=== PATIENT | male | born 1975 | race Caucasian/White ===

== ENCOUNTER 2019-10-15 22:57 | Emergency (ER) | payer OTHER ==
[~2019-10-15] VITALS: Ht 198.1 cm; Wt 125.0 kg
--- NOTE | 2019-10-15 23:00 | PHYS DOC ---
Past History Past Medical History: Anxiety, Depression, GERD Past Surgical History: No Surgical History Alcohol Use: Occasionally Drug Use: None General Adult HPI: HPI: ".. I ve been having some anxiety..and depressed thoughts.. I did think about and says in a text ..the world would be a better place without me maybe...I never developed at suicide plan...or anything..I am really depressed about not seeing my father before he ..and I only learned about his ..when I was [employer] the address of his [facility]....".. " I do have anxiety some times.. 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 and did drink about 6 beers last night to get to sleep.. 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 Currently having some grief and regrets over missing his father's and even being aware of his on September 05. Patient only learned about his father's in September when he was Googling the shelter address. Patient denies any active or specific plan for suicide. 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 Patient has not had a previous episodes or hospitalization for depression, anxiety or psychiatric issues. Denies any history of excessive frequent alcohol use. Patient denies any polysubstance abuse. Patient does have a family history of Parkinson's with his father which required shelter placement and mother has a history of anxiety and depression. Patient denies any history of PTSD or traumatic brain injury during 2 tours in [place]. Patient has approximately 20 years service. Patient denies any recent travel. Up-to-date with vaccinations. Normally healthy. Review of Systems: Review of Systems: Constitutional: Denies fever or chills Eyes: Denies change in visual acuity HENT: Denies nasal congestion or sore throat Respiratory: Denies cough or shortness of breath Cardiovascular: Denies chest pain or edema GI: Denies abdominal pain, nausea, vomiting, bloody stools or diarrhea : Denies dysuria Musculoskeletal: Denies back pain or joint pain Integument: Denies rash Neurologic: Denies headache, focal weakness or sensory changes Endocrine: Denies polyuria or polydipsia Lymphatic: Denies swollen glands Psychiatric: Hx of thoughts of depression and complaints of anxiety Heart Score: HEART Score for Chest Pain: HEART Score for Chest Pain Response (Comments) Value History Slighlty/Non-Suspicious 0 ECG Normal 0 Age < 45 0 Risk Factors No Risk Factors 0 Troponin < Normal Limit 0 Total 0 Risk Factors: Risk Factors: DM, Current or recent (<one month) smoker, HTN, HLP, family history of CAD, obesity. Risk Scores: Score 0 - 3: 2.5% MACE over next 6 weeks - Discharge Home Score 4 - 6: 20.3% MACE over next 6 weeks - Admit for Clinical Observation Score 7 - 10: 72.7% MACE over next 6 weeks - Early Invasive Strategies Family History: Family History: Father with Parkinson's, mother with depression and anxiety Current Medications: Current Meds: See nursing for home meds Allergies: Allergies: Allergies Coded Allergies Type Severity Reaction Last Updated Verified No Known Drug Allergies 10/01/15 No Physical Exam: PE: Constitutional: Well developed, well nourished, no acute distress, non-toxic appearance. [] Appears to be in very good physical condition HENT: Normocephalic, atraumatic, bilateral external ears normal, oropharynx moist, no oral exudates, nose normal. [] Eyes: PERRLA, EOMI, conjunctiva normal, no discharge. [] Neck: Normal range of motion, no tenderness, supple, no stridor. [] Cardiovascular: Bradycardia heart rate regular rhythm, no murmur [] Lungs & Thorax: Bilateral breath sounds equal apex on auscultation [] Abdomen: Bowel sounds normal, soft, no tenderness, no masses, no pulsatile masses. [] Skin: Warm, dry, no erythema, no rash. [] Back: No tenderness, no CVA tenderness. [] Extremities: No tenderness, no cyanosis, no clubbing, ROM intact, no edema. [] Neurologic: Alert and oriented X 3, normal motor function, normal sensory function, no focal deficits noted. [] Psychologic: Affect reports anxiety and depression,, judgement normal, patient denies any current suicidal ideation but did think about suicide yesterday. Patient denies any suicide plan. EKG: EKG: My interpretation EKG shows a sinus bradycardia at 56 bpm. No acute pathology noted [] Radiology/Procedures: Radiology/Procedures: [] IMAGING REPORT Signed PATIENT: ERIC CONNER ACCOUNT: [id number] : 1975 LOCATION: ER AGE: 44 SEX: M EXAM STATUS: PRE ER ORD. PHYSICIAN: GARCIA DINH MD REASON: dyspnea PROCEDURE: CHEST PA & LATERAL PA and lateral chest. HISTORY: Dyspnea PA and lateral views were taken of the chest. Lungs are free of infiltrates. Heart is normal in size. There is no pleural effusion. IMPRESSION: 1. No acute chest disease. Electronically signed by: Jose Luis Manzano MD (10/15/2019 11:24 PM) [id number] DICTATED AND SIGNED BY: JOSE LUIS MANZANO MD DATE: 10/15/19 2324 CC: GARCIA DINH MD; PCP,UNKNOWN ~ Course & Med Decision Making: Course & Med Decision Making Pertinent Labs and Imaging studies reviewed. (See chart for details) See tele-psych report- [facility] [place]. Patient to keep follow-up with counseling centers. Patient to return if any concerns. Patient encouraged use avoid alcohol when depressed. Patient encouraged to return anytime if any exacerbation of his depressive thoughts. Impression: 1. Complaints of Depression and anxieity 2. Grief Reaction [] Dragon Disclaimer: Dragon Disclaimer: This electronic medical record was generated, in whole or in part, using a voice recognition dictation system. Departure Departure: Disposition: 01 HOME/RESIDENCE PRIOR TO ADM Condition: STABLE Referrals: PCP,UNKNOWN (PCP) Justification of Admission: Justification of Admission: Justification of Admission Dx: N/A Dragon Disclaimer This chart was dictated in whole or in part using Voice Recognition software in a busy, high-work load, and often noisy Emergency Department environment. It may contain unintended and wholly unrecognized errors or omissions. Dragon Disclaimer This chart was dictated in whole or in part using Voice Recognition software in a busy, high-work load, and often noisy Emergency Department environment. It may contain unintended and wholly unrecognized errors or omissions. Dragon Disclaimer This chart was dictated in whole or in part using Voice Recognition software in a busy, high-work load, and often noisy Emergency Department environment. It may contain unintended and wholly unrecognized errors or omissions. Dragon Disclaimer This chart was dictated in whole or in part using Voice Recognition software in a busy, high-work load, and often noisy Emergency Department environment. It may contain unintended and wholly unrecognized errors or omissions. GARCIA DINH MD Oct 15, 2019 23:00
--- NOTE | 2019-10-15 23:27 | RAD ---
PA and lateral chest. HISTORY: Dyspnea PA and lateral views were taken of the chest. Lungs are free of infiltrates. Heart is normal in size. There is no pleural effusion. IMPRESSION: 1. No acute chest disease. Electronically signed by: Jose Luis Manzano MD (10/15/2019 11:24 PM) [id number]
[2019-10-15] MEDS ORDERED: IV RINGERS SOLUTION,LACTATED 1,000 ML IV SCH (23:30)
[2019-10-15 23:36] LABS: BARBITURATES NEG (NEG); BENZODIAZEPINES NEG (NEG); CANNABINOIDS NEG (NEG); COCAINE NEG (NEG); METHADONE NEG (NEG); OPIATES NEG (NEG); PHENCYCLIDINE NEG (NEG)
[2019-10-15 23:37] LABS: BACTERIA,URINE 0 /HPF (0-FEW); BILIRUBIN,URINE NEG (NEG); CLARITY,URINE CLEAR; COLOR,URINE YELLOW; GLUCOSE,URINE NEG (NEG); NITRITE,URINE NEG (NEG); RBC,URINE 0 /HPF (0-2); SQUAMOUS EPITHELIAL CELL,UR OCC /LPF; WBC,URINE OCC /HPF (0-4)
[2019-10-15 23:43] LABS: AMPHETAMINE/METHAMPHETAMINE NEG (NEG)
[2019-10-15 23:51] LABS: BASO # 0.1 x10^3/uL (0.0-0.2); BASO % 1 % (0-3); EOS # 0.2 x10^3/uL (0.0-0.7); EOS % 3 % (0-3); HEMATOCRIT 40.3 % (39.0-53.0); HEMOGLOBIN 13.7 g/dL (13.0-17.5); LYMPH % 44 % (24-48); MEAN CORPUSCULAR HEMOGLOBIN 28 pg (25-35); MEAN CORPUSCULAR HGB CONC 34 g/dL (31-37); MEAN CORPUSCULAR VOLUME 81 fL (79-100); MONO # 0.6 x10^3/uL (0.0-1.1); MONO % 8 % (0-9); NEUT % 45 % (31-73); PLATELET COUNT 182 x10^3/uL (140-400); RED BLOOD COUNT 4.95 x10^6/uL (4.30-5.70); RED CELL DISTRIBUTION WIDTH 13.6 % (11.5-14.5); WHITE BLOOD COUNT 6.8 x10^3/uL (4.0-11.0)
[2019-10-16 00:04] LABS: CALCIUM 8.8 mg/dL (8.5-10.1); GFR 81.6; POTASSIUM 3.5 mmol/L (3.5-5.1)
[2019-10-16 00:07] LABS: ETHANOL < 10 mg/dL (0-10); SALIC < 2.8 mg/dL (2.8-20.0)
[2019-10-16 00:08] LABS: ACETAMIN < 2.0 mcg/mL (10-30)
[2019-10-16 00:10] LABS: ALBUMIN 3.8 g/dL (3.4-5.0); DIRECT BILIRUBIN 0.1 mg/dL (0.0-0.2); MAGNESIUM 1.8 mg/dL (1.8-2.4); TOTAL BILIRUBIN 0.6 mg/dL (0.2-1.0); TOTAL PROTEIN 7.1 g/dL (6.4-8.2)
[2019-10-16 00:38] VITALS: BP 120/84
--- NOTE | 2019-10-16 05:01 | EKG ---
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
== END 2019-10-16 02:27 | disposition home or self-care (01) ==
LOC: ER 22:57
DX: F32.9 Major depressive disorder, single episode, unspecified (principal); F41.9 Anxiety disorder, unspecified; F43.20 Adjustment disorder, unspecified; K21.9 Gastro-esophageal reflux disease without esophagitis
CPT/HCPCS: 36415; 71046; 80048; 80076; 80307; 80329; 81001; 82550; 83690; 83735; 84443; 84484; 85025; 85610; 85730; 93005; 99285; G0480; J7120

== ENCOUNTER 2019-11-01 11:00 | Emergency (ER) | payer OTHER ==
[~2019-11-01] VITALS: Ht 198.1 cm; Wt 115.7 kg
[2019-11-01 11:05] VITALS: BP 112/76
[2019-11-01] MEDS ORDERED: BUTALB/APAP/CAFEIN 50/325/40MG TABLET. PO ONE (11:15)
[2019-11-01] MEDS ORDERED: DEXAMETHASONE 4 MG TABLET PO ONE (11:15)
[2019-11-01] MEDS ORDERED: KETOROLAC 30 MG/ML VIAL. IM ONE (11:15)
[2019-11-01] MEDS ORDERED: BUTA1TAB23 PO (11:26)
--- NOTE | 2019-11-01 11:27 | PHYS DOC ---
Past History Past Medical History: Anxiety, Depression, GERD Past Surgical History: No Surgical History Smoking: Non-smoker Alcohol Use: Occasionally Drug Use: None General Adult EDM: Chief Complaint: HEADACHE HPI: HPI: 44-year-old male presents with 3-day history of headache with pain behind his eyes. Denies photophobia. Denies nausea. Denies fever or chills. Denies known trauma. Denies neck pain. Review of Systems: Review of Systems: Constitutional: Denies fever or chills Eyes: Denies redness; reports pain behind his eyes HENT: Denies nasal congestion or sore throat Respiratory: Denies cough or shortness of breath Cardiovascular: Denies chest pain or palpitations GI: Denies abdominal pain, nausea, or vomiting : Denies dysuria or hematuria Musculoskeletal: Denies neck pain or joint pain Integument: Denies rash or skin lesions Neurologic: Reports headache,; denies focal weakness or sensory changes Complete systems were reviewed and found to be within normal limits, except as documented in this note. Current Medications: Current Meds: Current Medications Medications (Trade) Dose Ordered Sig/Linda Start Time Stop Time Status Last Admin Dose Admin Acetaminophen/ Butalbital/ Caffeine (Fioricet) 1 tab 1X ONCE 11/01/19 11:15 11/01/19 11:16 DC Dexamethasone (Decadron) 10 mg 1X ONCE 11/01/19 11:15 11/01/19 11:16 DC Ketorolac Tromethamine (Toradol 30mg Vial) 30 mg 1X ONCE 11/01/19 11:15 11/01/19 11:16 DC Allergies: Allergies: Allergies Coded Allergies Type Severity Reaction Last Updated Verified No Known Drug Allergies 10/01/15 No Physical Exam: PE: Constitutional: Well developed, well nourished, no acute distress, non-toxic appearance HENT: Normocephalic, atraumatic Eyes: PERRL, EOMI, conjunctiva normal, no discharge, no nystagmus Neck: Normal range of motion, no midline tenderness, supple, no meningeal signs Lungs & Thorax: No respiratory distress, equal chest rise and fall Abdomen: Soft, no tenderness Skin: Warm, dry, no erythema, no rash Extremities: No tenderness, ROM intact, no edema Neurologic: Alert and oriented X 3, normal motor function, normal sensory function, no focal deficits noted Psychologic: Affect normal, judgment normal EKG: EKG: [] Radiology/Procedures: Radiology/Procedures: [] Course & Med Decision Making: Course & Med Decision Making Patient presents with headache x3 days. Patient is neurologically intact. Afebrile. No meningeal signs appreciated. Symptomatic treatment provided. Patient stable for discharge with outpatient follow-up with PCP. Discussed findings and plan with patient, who acknowledges understanding and agreement. Dorene Disclaimer: Dorene Disclaimer: This electronic medical record was generated, in whole or in part, using a voice recognition dictation system. Departure Departure: Impression: Primary Impression: Headache Qualified Codes: R51 - Headache Disposition: HOME/RESIDENCE PRIOR TO ADM Condition: STABLE Referrals: VIOLA RALPH (PCP) Patient Instructions: Headache, FAQs Additional Instructions: May also take over the counter Ibuprofen 600mg (three over the counter tabs) three times daily as needed for pain/headache. Scripts Butalb/Acetaminophen/Caffeine ([id number] 50-325-40) 1 Each Tablet 1 EACH PO Q6HRS PRN for HEADACHE, #14 TAB Prov: MATHEUS MCDERMOTT DO 11/01/19 Justification of Admission: Justification of Admission: Justification of Admission Dx: N/A MATHEUS MCDERMOTT DO Nov 01, 2019 11:27
== END 2019-11-01 12:01 | disposition home or self-care (01) ==
LOC: ER 11:00
DX: R51 Headache (principal); H57.89 Other specified disorders of eye and adnexa; F41.9 Anxiety disorder, unspecified; F32.9 Major depressive disorder, single episode, unspecified; K21.9 Gastro-esophageal reflux disease without esophagitis
CPT/HCPCS: 99283; J8540

== ENCOUNTER 2020-04-26 13:42 | Emergency (ER) | payer OTHER ==
[~2020-04-26] VITALS: Ht 182.9 cm; Wt 115.7 kg
[~2020-04-26 13:42] MED LIST: BUTA1TAB23 PO
[2020-04-26] MEDS ORDERED: IV NORMAL SALINE 1,000ML 1,000 ML IV SCH (14:00)
--- NOTE | 2020-04-26 14:04 | PHYS DOC ---
Past History Past Medical History: Anxiety, Depression, Other Additional Past Medical Histor: Panic attacks (ANGEL WHITEHEAD APRN) Past Surgical History: No Surgical History (ANGEL WHITEHEAD APRN) Smoking: Non-smoker Alcohol Use: None Drug Use: None (ANGEL WHITEHEAD APRN) General Adult EDM: Chief Complaint: ANXIETY/PANIC ATTACK HPI: HPI: Patient is a 44-year-old male who presents with dizziness that started today around 1:00 while he was sitting in his basement watching TV. EMS was called but patient refused. Patient states he tried to drive here but' started having a panic attack on the way and had to call EMS to bring him in. Patient also reports he was feeling short of breath, chest pressure that radiated into his neck, and tingling in bilateral hands. Patient also reports pressure behind bilateral eyes and rates it a 2 out of 10. Nuys taking anything for pain or anxiety at home. Patient states that he has had some congestion since Friday and has been taking Mucinex D and NyQuil. Patient denies nausea, vomiting, diarrhea. Denies any issues with eating or drinking. Patient's has history of anxiety and depression. (ANGEL WHITEHEAD APRN) Review of Systems: Review of Systems: Constitutional: Denies fever or chills Eyes: Denies change in visual acuity HENT: Reports nasal congestion and pain behind bilateral eyes Respiratory: Denies cough or shortness of breath Cardiovascular: Reports chest pain denies edema GI: Denies abdominal pain, nausea, vomiting, bloody stools or diarrhea : Denies dysuria Musculoskeletal: Denies back pain or joint pain Integument: Denies rash Neurologic: Ports headache, denies focal weakness or sensory changes Endocrine: Denies polyuria or polydipsia Lymphatic: Denies swollen glands Psychiatric: Reports history of depression and anxiety (ANGEL WHITEHEAD APRN) Allergies: Allergies: Allergies Coded Allergies Type Severity Reaction Last Updated Verified No Known Drug Allergies 10/01/15 No (ANGEL WHITEHEAD APRN) Physical Exam: PE: Constitutional: Well developed, well nourished, no acute distress, non-toxic appearance. [] HENT: Normocephalic, atraumatic, bilateral external ears normal, oropharynx moist, no oral exudates, nose normal. [] Eyes: PERRLA, EOMI, conjunctiva normal, no discharge. [] Neck: Normal range of motion, no tenderness, supple, no stridor. [] Cardiovascular:Heart rate regular rhythm, no murmur [] Lungs & Thorax: Bilateral breath sounds clear to auscultation [] Abdomen: Bowel sounds normal, soft, no tenderness, no masses, no pulsatile masses. [] Skin: Warm, dry, no erythema, no rash. [] Back: No tenderness, no CVA tenderness. [] Extremities: No tenderness, no cyanosis, no clubbing, ROM intact, no edema. [] Neurologic: Alert and oriented X 3, normal motor function, normal sensory function, no focal deficits noted. [] Psychologic: Affect normal, judgement normal, mood normal. [] (ANGEL WHITEHEAD APRN) Current Patient Data: Vital Signs: Vital Signs Date Time Temp Pulse Resp B/P (MAP) Pulse Ox O2 Delivery O2 Flow Rate FiO2 04/26/20 13:45 97.8 74 16 120/81 (94) 98 Room Air (ANGEL WHITEHEAD APRN) EKG: EKG: Sinus rhythm, no specific ECG abnormalities. Heart rate 66 bpm. Intervals normal, axis normal. No STEMI. Read by Dr. Seaman at 1423 [] (ANGEL WHITEHEAD APRN) Radiology/Procedures: Radiology/Procedures: []XR CHEST 1V INDICATION: Reason: chest pressure, sob / Spl. Instructions: / History: . COMPARISON STUDY: None. FINDINGS: Lungs: Normal lung volume. No pulmonary mass or consolidation. The tracheobronchial tree and hilar structures are normal. Pleura: No pleural effusion or pneumothorax. Heart and Mediastinum: The cardiomediastinal silhouette is normal. The great vessels of the thorax are normal. Bones and Soft Tissues: The bones and soft tissues are within normal limits. IMPRESSION: No acute cardiopulmonary process. Electronically signed by: Johnathan Gordon MD (04/26/2020 3:14 PM) [id number] (ANGEL WHITEHEAD APRN) Heart Score: HEART Score for Chest Pain: HEART Score for Chest Pain Response (Comments) Value History Slighlty/Non-Suspicious 0 ECG Normal 0 Age < 45 0 Risk Factors No Risk Factors 0 Troponin < Normal Limit 0 Total 0 Risk Factors: Risk Factors: DM, Current or recent (<one month) smoker, HTN, HLP, family history of CAD, obesity. Risk Scores: Score 0 - 3: 2.5% MACE over next 6 weeks - Discharge Home Score 4 - 6: 20.3% MACE over next 6 weeks - Admit for Clinical Observation Score 7 - 10: 72.7% MACE over next 6 weeks - Early Invasive Strategies (ANGEL WHITEHEAD APRN) Course & Med Decision Making: Course & Med Decision Making Pertinent Labs and Imaging studies reviewed. (See chart for details) [] 44-year-old man who presents with dizziness today that started at 1 PM while he was sitting in his basement watching TV. Patient also reports chest pressure that radiates up into his neck, and shortness of breath. She reports pressure behind his eyes. Patient denies nausea, vomiting. Patient given aspirin and fluids. EKG normal sinus rhythm. All labs within normal limits. Troponin negative. D- dimer and chest x-ray negative. Heart score of 0. Patient reports his symptoms have resolved other than the pressure behind his eyes. Will order Toradol for pain. Patient is hemodynamically stable on discharge and able to ambulate on his own. (ANGEL WHITEHEAD APRN) Course & Med Decision Making Patient had a panic attack. Patient is well-appearing without any distress. Denies suicidal or homicidal ideation. (LATA SEAMAN MD) Dragon Disclaimer: Dorene Disclaimer: This electronic medical record was generated, in whole or in part, using a voice recognition dictation system. (ANGEL WHITEHEAD APRN) Departure Departure: Impression: Primary Impression: Anxiety Additional Impression: Chest pressure Disposition: 01 DC HOME SELF CARE/HOMELESS Condition: IMPROVED Referrals: VIOLA RALPH (PCP) Patient Instructions: Anxiety and Panic Attacks, [id number] Additional Instructions: You were seen in the emergency room today for dizziness, chest pressure and a nxiety.All of your labs were within normal limits and you EKG showed no abnormalities. Please follow up with your primary care physician for further management and possible referral. If your symptoms worsen or you have further concerns, return to the emergency room for evaluation. EMERGENCY DEPARTMENT GENERAL DISCHARGE INSTRUCTIONS Thank you for coming to [facility] (ED) today and trusting us with you care. We trust that you had a positivie experience in our Emergency Department. If you wish to speak to the department management, you may call the director at [phone]. YOUR FOLLOW UP INSTRUCTIONS ARE FOLLOWS: 1. Do you have a private Doctor? If you do not have a private doctor, please ask for a resource list of physicians or clinics that may be able to assist you with follow up care. 2. The Emergency Physician has interpreted your x-rays. The X-Ray specialist will also review them. If there is a change in the findings, you will be notified in 48 hours when at all possible. 3. A lab test or culture has been done, your results will be reviewed and you will be notified if you need a change in treatment. ADDITIONAL INSTRUCTIONS AND INFORMATION: 1. Your care today has been supervised by a physician who is specially trained in emergency care. Many problems require more than one evaluation for a complete diagnosis and treatment. We recommend that you schedule your follow up appointment as recommended to ensure complete treatment of you illness or injury. If you are unable to obtain follow up care and continue to have a problem, or if your condition worsens, we recommend that you return to the ED. 2. We are not able to safely determine your condition over the phone nor are we able to give sound medical advice over the phone. For these safety reasons, if you call for medical advice we will ask you to come to the ED for further evaluation. 3. If you have any questions regarding these discharge instructions please call the ED at [phone]. SAFETY INFORMATION: In the interest of safety, wellness, and injury prevention; we encourage you to wear your sealbelt, if you smoke; quite smoking, and we encourage family to use a protective helmet for bicycling and other sporting events that present an increased risk for head injury. IF YOUR SYMPTOMS WORSEN OR NEW SYMPTOMS DEVELOP, OR YOU HAVE CONCERNS ABOUT YOUR CONDITION; OR IF YOUR CONDITION WORSENS WHILE YOU ARE WAITING FOR YOUR FOLLOW UP APPOINTMENT; EITHER CONTACT YOUR PRIMARY CARE DOCTOR, THE PHYSICIAN WHOSE NAME AND NUMBER YOU WERE GIVEN, OR RETURN TO THE ED IMMEDIATELY. ANGEL WHITEHEAD APRN Apr 26, 2020 14:04 LATA SEAMAN MD Apr 27, 2020 08:06
[2020-04-26] MEDS ORDERED: ASPIRIN CHEWABLE 81 MG TABLET. PO ONE (14:15)
[2020-04-26 14:23] LABS: BASO % 1 % (0-3); EOS # 0.1 x10^3/uL (0.0-0.7); EOS % 2 % (0-3); HEMATOCRIT 41.7 % (39.0-53.0); HEMOGLOBIN 14.2 g/dL (13.0-17.5); LYMPH # 1.2 x10^3/uL (1.0-4.8); LYMPH % 35 % (24-48); MEAN CORPUSCULAR HEMOGLOBIN 27 pg (25-35); MEAN CORPUSCULAR HGB CONC 34 g/dL (31-37); MEAN CORPUSCULAR VOLUME 81 fL (79-100); MONO # 0.4 x10^3/uL (0.0-1.1); MONO % 12 % (0-9); NEUT # 1.7 x10^3uL (1.8-7.7); NEUT % 51 % (31-73); PLATELET COUNT 121 x10^3/uL (140-400); RED BLOOD COUNT 5.19 x10^6/uL (4.30-5.70); RED CELL DISTRIBUTION WIDTH 13.3 % (11.5-14.5); WHITE BLOOD COUNT 3.4 x10^3/uL (4.0-11.0)
--- NOTE | 2020-04-26 14:23 | EKG ---
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
[2020-04-26 14:33] LABS: CALCIUM 8.9 mg/dL (8.5-10.1); CREATININE 0.9 mg/dL (0.7-1.3); GFR 92.1; POTASSIUM 3.9 mmol/L (3.5-5.1)
[2020-04-26 14:45] LABS: ALBUMIN 3.9 g/dL (3.4-5.0); ALBUMIN/GLOBULIN RATIO 1.3 (1.0-1.7); TOTAL BILIRUBIN 0.5 mg/dL (0.2-1.0); TOTAL PROTEIN 6.9 g/dL (6.4-8.2)
[2020-04-26] MEDS ORDERED: KETOROLAC 15 MG/ML VIAL. IVP ONE (15:15)
--- NOTE | 2020-04-26 15:17 | RAD ---
XR CHEST 1V INDICATION: Reason: chest pressure, sob / Spl. Instructions: / History: . COMPARISON STUDY: None. FINDINGS: Lungs: Normal lung volume. No pulmonary mass or consolidation. The tracheobronchial tree and hilar st ructures are normal. Pleura: No pleural effusion or pneumothorax. Heart and Mediastinum: The cardiomediastinal silhouette is normal. The great vessels of the thorax ar e normal. Bones and Soft Tissues: The bones and soft tissues are within normal limits. IMPRESSION: No acute cardiopulmonary process. Electronically signed by: Johnathan Gordon MD (04/26/2020 3:14 PM) [id number]
[2020-04-26 15:37] LABS: BARBITURATES NEG (NEG); BENZODIAZEPINES NEG (NEG); CANNABINOIDS NEG (NEG); COCAINE NEG (NEG); METHADONE NEG (NEG); OPIATES NEG (NEG); PHENCYCLIDINE NEG (NEG)
[2020-04-26 15:43] VITALS: BP 135/54
[2020-04-26 15:50] LABS: BILIRUBIN,URINE NEG (NEG); CLARITY,URINE CLEAR; COLOR,URINE YELLOW; GLUCOSE,URINE NEG (NEG)
[2020-04-26 15:51] LABS: BACTERIA,URINE FEW /HPF (0-FEW); NITRITE,URINE NEG (NEG); RBC,URINE OCC /HPF (0-2); SQUAMOUS EPITHELIAL CELL,UR OCC /LPF; UROBILINOGEN,URINE 0.2 mg/dL (0.2 mg/dL); WBC,URINE OCC /HPF (0-4)
[2020-04-26 15:53] LABS: AMPHETAMINE/METHAMPHETAMINE NEG (NEG)
== END 2020-04-26 15:47 | disposition home or self-care (01) ==
LOC: ER 13:42
DX: F41.9 Anxiety disorder, unspecified (principal); R07.89 Other chest pain; F32.9 Major depressive disorder, single episode, unspecified
CPT/HCPCS: 36415; 71045; 80053; 80307; 81001; 83880; 84484; 85025; 85379; 93005; 96361; 96374; 99285; J1885; J7030

== ENCOUNTER 2020-12-12 08:08 | Emergency (ER) | payer OTHER ==
[~2020-12-12] VITALS: Ht 198.1 cm; Wt 118.6 kg
[2020-12-12] MEDS ORDERED: TRIA15OI TP (08:41)
[2020-12-12] MEDS ORDERED: PRED-220 PO (08:41)
--- NOTE | 2020-12-12 08:42 | PHYS DOC ---
Past History Past Medical History: Anxiety, Depression, Other Additional Past Medical Histor: Panic attacks Past Surgical History: No Surgical History Smoking: Non-smoker Alcohol Use: None Drug Use: None General Adult EDM: Chief Complaint: Insect bites HPI: HPI: 45-year-old male presents with many insect bites in the bilateral feet and ankles. He has a couple scattered areas on his upper extremities. These showed up several days ago. He has not spent a lot of time outside. He did mow his yard about a week ago. The rash is intensely pruritic. The patient also presents for a superficial laceration of the left leg. He was using a knife when it slipped and he made a cut in the left thigh. Bleeding is controlled prior to arrival. No skin gaping. The patient's tetanus shot is within the last 3 years. Review of Systems: Review of Systems: Constitutional: Denies fever or chills Eyes: Denies change in visual acuity HENT: Denies nasal congestion or sore throat Respiratory: Denies cough or shortness of breath Cardiovascular: Denies chest pain or edema GI: Denies abdominal pain, nausea, vomiting, bloody stools or diarrhea : Denies dysuria Musculoskeletal: Denies back pain or joint pain Integument: Rash, laceration Neurologic: Denies headache, focal weakness or sensory changes Endocrine: Denies polyuria or polydipsia Lymphatic: Denies swollen glands Psychiatric: Denies depression or anxiety Allergies: Allergies: Allergies Coded Allergies Type Severity Reaction Last Updated Verified No Known Drug Allergies 10/01/15 No Physical Exam: PE: Constitutional: Well developed, well nourished, no acute distress, non-toxic appearance. [] HENT: Normocephalic, atraumatic, bilateral external ears normal, oropharynx moist, no oral exudates, nose normal. [] Eyes: PERRLA, EOMI, conjunctiva normal, no discharge. [] Neck: Normal range of motion, no tenderness, supple, no stridor. [] Cardiovascular:Heart rate regular rhythm, no murmur [] Lungs & Thorax: Bilateral breath sounds clear to auscultation [] Abdomen: Bowel sounds normal, soft, no tenderness, no masses, no pulsatile masses. [] Skin: Many erythematous papules of the bilateral lower extremities with evidence of excoriation. Few scattered areas on the bilateral upper extremities. Superficial 4 cm laceration left thigh [] Back: No tenderness, no CVA tenderness. [] Extremities: No tenderness, no cyanosis, no clubbing, ROM intact, no edema. [] Neurologic: Alert and oriented X 3, normal motor function, normal sensory function, no focal deficits noted. [] Psychologic: Affect normal, judgement normal, mood normal. [] EKG: EKG: [] Radiology/Procedures: Radiology/Procedures: [] Heart Score: C/O Chest Pain: N/A Risk Factors: Risk Factors: DM, Current or recent (<one month) smoker, HTN, HLP, family history of CAD, obesity. Risk Scores: Score 0 - 3: 2.5% MACE over next 6 weeks - Discharge Home Score 4 - 6: 20.3% MACE over next 6 weeks - Admit for Clinical Observation Score 7 - 10: 72.7% MACE over next 6 weeks - Early Invasive Strategies Course & Med Decision Making: Course & Med Decision Making Pertinent Labs and Imaging studies reviewed. (See chart for details) The patient's laceration is very superficial and not concerning. The skin is perfectly approximated without intervention. His rash appears to be consistent with oak mite bites. I will treat him with 10 days of prednisone as well as triamcinolone. He is stable for discharge at this time. [] Dorene Disclaimer: Dorene Disclaimer: This electronic medical record was generated, in whole or in part, using a voice recognition dictation system. Departure Departure: Impression: Primary Impression: Insect bite Qualified Codes: S90.869A - Insect bite (nonvenomous), unspecified foot, initial encounter; W57.XXXA - Bitten or stung by nonvenomous insect and other nonvenomous arthropods, initial encounter Additional Impression: Superficial laceration of thigh Disposition: HOME / SELF CARE / HOMELESS Condition: STABLE Referrals: JOEY GALVEZ (PCP) Patient Instructions: Insect Bite, [id number]-bg-Hqul Scripts Prednisone (PREDNISONE) 10 Mg Tablet 10 MG PO UD for PREDNISONE TAPER, #24 TAB 0 Refills Take 4 tablets by mouth daily for 3 days, then take 3 tablets by mouth daily for 2 days, then take 2 tablet by mouth daily for 2 days, then take 1 tablet by mouth daily for 2 days, then stop. Prov: DOMINIQUE QUICK DO 8/31/21 Triamcinolone Acetonide (TRIAMCINOLONE ACETONIDE 0.1% OINT) 15 Gm Oint...g. 1 DEMETRIA TP BID PRN for ITCHING, #1 EACH 1 Refill Prov: DOMINIQUE QUICK DO 12/12/20 DOMINIQUE QUICK DO Dec 12, 2020 08:41
[2020-12-12] MEDS: predniSONE 20 MG TABLET PO ONE (09:14)
[2020-12-12 09:18] VITALS: BP 129/81
== END 2020-12-12 09:20 | disposition home or self-care (01) ==
LOC: ER 08:08
DX: S71.112A Laceration without foreign body, left thigh, initial encounter (principal); S90.562A Insect bite (nonvenomous), left ankle, initial encounter; S90.561A Insect bite (nonvenomous), right ankle, initial encounter; W26.0XXA Contact with knife, initial encounter; Y93.89 Activity, other specified; Y92.89 Other specified places as the place of occurrence of the external cause; Y99.8 Other external cause status
CPT/HCPCS: 99283; J7512

== ENCOUNTER 2021-05-10 07:21 | Emergency (ER) | payer OTHER ==
[~2021-05-10] VITALS: Ht 198.1 cm; Wt 118.6 kg
[~2021-05-10 07:21] MED LIST changes: +PRED-220 PO; +TRIA15OI32 TP
--- NOTE | 2021-05-10 07:48 | PHYS DOC ---
Past History Past Medical History: Anxiety, Depression, Other Additional Past Medical Histor: Panic attacks Past Surgical History: No Surgical History Smoking: Non-smoker Alcohol Use: Occasionally Drug Use: None Adult General Chief Complaint Chief Complaint: CHEST PAIN HPI HPI Patient is a 45-year-old male presenting via POV for chest pain. Reports onset was approximately 4 hours prior to arrival and awoke him from sleep. States pain is central to chest with radiation to left breast and shoulder. Reports pain is pressure in nature with symptoms waxing and waning since onset. Denies any other associated symptoms. States he was able to fall back asleep but after reexperiencing pain shortly after waking up he presented to our ER for evaluation. 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 He has had chest pain like this in the past that has been formally evaluated in the ER and has also undergone provocative cardiac testing in the outpatient setting with most recent stress test being 8 years ago and echocardiogram approximately 2 years ago. He is fully vaccinated against COVID without any symptoms today, does admit most recent infection approximately 4 weeks prior Review of Systems Review of Systems Fourteen body systems of review of systems have been reviewed. See HPI for pertinent positives and negative responses, other dumont all other systems are negative, non-pertinent or non-contributory Allergies Allergies Allergies Coded Allergies Type Severity Reaction Last Updated Verified No Known Drug Allergies 12/12/20 No Physical Exam Physical Exam Constitutional: Well developed, well nourished, no acute distress, non-toxic appearance. HENT: Normocephalic, atraumatic, bilateral external ears normal, oropharynx moist, no oral exudates, nose normal. Eyes: PERRLA, EOMI, conjunctiva normal, no discharge. Neck: Normal range of motion, no tenderness, supple, no stridor. Cardiovascular: Heart rate regular, sinus rhythm, no murmurs rubs or gallops. Chest wall nontender Lungs & Thorax: Bilateral breath sounds clear to auscultation Abdomen: Bowel sounds normal, soft, no tenderness, no masses, no pulsatile masses. Nonsurgical abdomen, no peritoneal signs Skin: Warm, dry, no erythema, no rash. Back: No tenderness, no CVA tenderness. Extremities: No tenderness, no cyanosis, no clubbing, ROM intact, no edema. Neurologic: Alert and oriented X 3, grossly normal motor & sensory function, no focal deficits noted. Psychologic: Anxious affect and mood Current Patient Data Vital Signs Vital Signs Date Time Temp Pulse Resp B/P (MAP) Pulse Ox O2 Delivery O2 Flow Rate FiO2 05/10/21 07:27 97.6 74 16 133/76 (95) 97 Room Air Lab Results Laboratory Tests Test 05/10/21 07:58 White Blood Count 5.5 x10^3/uL Red Blood Count 5.15 x10^6/uL Hemoglobin 14.3 g/dL Hematocrit 41.3 % Mean Corpuscular Volume 80 fL Mean Corpuscular Hemoglobin 28 pg Mean Corpuscular Hemoglobin Concent 35 g/dL Red Cell Distribution Width 13.0 % Platelet Count 161 x10^3/uL Neutrophils (%) (Auto) 36 % Lymphocytes (%) (Auto) 50 % Monocytes (%) (Auto) 9 % Eosinophils (%) (Auto) 4 % Basophils (%) (Auto) 1 % Neutrophils # (Auto) 2.0 x10^3uL Lymphocytes # (Auto) 2.7 x10^3/uL Monocytes # (Auto) 0.5 x10^3/uL Eosinophils # (Auto) 0.2 x10^3/uL Basophils # (Auto) 0.0 x10^3/uL Sodium Level 143 mmol/L Potassium Level 4.3 mmol/L Chloride Level 103 mmol/L Carbon Dioxide Level 28 mmol/L Anion Gap 12 Blood Urea Nitrogen 13 mg/dL Creatinine 0.9 mg/dL Estimated GFR (Cockcroft-Gault) 91.7 Glucose Level 98 mg/dL Calcium Level 8.8 mg/dL Troponin I High Sensitivity 4 ng/L Current Medications Medications (Trade) Dose Ordered Sig/Linda Route PRN Reason Start Time Stop Time Status Last Admin Dose Admin Aspirin (Aspirin Chewable) 324 mg 1X ONCE PO 05/10/21 08:00 05/10/21 08:01 DC 05/10/21 07:54 EKG EKG EKG ordered and interpreted by myself at 0736 hrs. is sinus rhythm at 63 bpm, unremarkable intervals, no axis deviation, no acute ischemic findings, no STEMI Radiology/Procedures Radiology/Procedures EXAM: Chest, single view. HISTORY: Chest pain. COMPARISON: 04/26/2020 FINDINGS: A frontal view of the chest is obtained. There is no infiltrate, pleural effusion or pneumothorax. The heart is normal in size. IMPRESSION: No acute pulmonary finding. Electronically signed by: Carin Torres MD (05/10/2021 8:22 AM) [id number] Heart Score C/O Chest Pain: Yes HEART Score for Chest Pain: HEART Score for Chest Pain Response (Comments) Value History Slighlty/Non-Suspicious 0 ECG Normal 0 Age < 45 0 Risk Factors No Risk Factors 0 Troponin < Normal Limit 0 Total 0 Risk Factors: Risk Factors: DM, Current or recent (<one month) smoker, HTN, HLP, family history of CAD, obesity. Risk Scores: Risk Factors: DM, Current or recent (<one month) smoker, HTN, HLP, family hist ory of CAD, obesity. Course & Med Decision Making Course & Med Decision Making ABCs unremarkable. I disclosed entirety of ER findings and discussed most likely diagnosis of atypical/noncardiac chest pain. Other diagnoses were discussed with patient such as ACS, pneumonia, pneumothorax pulmonary embolism and other potentially life-threatening diagnoses but all deemed less likely causes of patient's presentation. Plan of care discussed at length with need for close outpatient follow-up to review today's ER visit stressed. Strict return precautions were also discussed at length with good understanding verbalized by patient. Patient has good access to primary care physician and so, close outpatient follow-up for provocative cardiac testing is advised. Patient voiced understanding and agreement with the plan. Patient knows to come back for repeat evaluation if concerning signs or symptoms present prior to outpatient follow- up. Hemodynamically stable, ambulatory and well-appearing at time of disposition. Dragon Disclaimer Dragon Disclaimer This electronic medical record was generated, in whole or in part, using a voice recognition dictation system. Departure Departure: Impression: Primary Impression: Chest pain Disposition: HOME / SELF CARE / HOMELESS Condition: STABLE Referrals: JOEY GALVEZ (PCP) Additional Instructions: You were seen for chest pain. Your workup did not show any acute abnormalities today, but does not indicate that you do not have underlying cardiovascular disease. You do need to follow up with your primary doctor and potentially a methods time analyst for further evaluation and treatment. You should return to the ED if you develop worsening chest pain, shortness of breath, fever, abnormal sweating, leg swelling, or any other new or concerning symptoms. CRISTIAN STEEL DO May 10, 2021 07:48
[2021-05-10] MEDS ORDERED: ASPIRIN CHEWABLE 81 MG TABLET. PO ONE (08:00)
[2021-05-10 08:20] LABS: BASO % 1 % (0-3); EOS # 0.2 x10^3/uL (0.0-0.7); EOS % 4 % (0-3); HEMATOCRIT 41.3 % (39.0-53.0); HEMOGLOBIN 14.3 g/dL (13.0-17.5); LYMPH # 2.7 x10^3/uL (1.0-4.8); LYMPH % 50 % (24-48); MEAN CORPUSCULAR HEMOGLOBIN 28 pg (25-35); MEAN CORPUSCULAR HGB CONC 35 g/dL (31-37); MEAN CORPUSCULAR VOLUME 80 fL (79-100); MONO # 0.5 x10^3/uL (0.0-1.1); MONO % 9 % (0-9); NEUT % 36 % (31-73); PLATELET COUNT 161 x10^3/uL (140-400); RED BLOOD COUNT 5.15 x10^6/uL (4.30-5.70); WHITE BLOOD COUNT 5.5 x10^3/uL (4.0-11.0)
--- NOTE | 2021-05-10 08:24 | RAD ---
EXAM: Chest, single view. HISTORY: Chest pain. COMPARISON: 04/26/2020 FINDINGS: A frontal view of the chest is obtained. There is no infiltrate, pleural effusion or pneumo thorax. The heart is normal in size. IMPRESSION: No acute pulmonary finding. Electronically signed by: Carin Torres MD (05/10/2021 8:22 AM) [id number]
[2021-05-10 08:33] LABS: POTASSIUM 4.3 mmol/L (3.5-5.1)
[2021-05-10 08:56] LABS: CALCIUM 8.8 mg/dL (8.5-10.1); CREATININE 0.9 mg/dL (0.7-1.3); GFR 91.7
[2021-05-10 09:59] VITALS: BP 146/67
--- NOTE | 2021-05-11 03:07 | EKG ---
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
== END 2021-05-10 10:26 | disposition home or self-care (01) ==
LOC: ER 07:21
DX: R07.89 Other chest pain (principal); F41.9 Anxiety disorder, unspecified; F32.9 Major depressive disorder, single episode, unspecified
CPT/HCPCS: 36415; 71045; 80048; 84484; 85025; 93005; 99285